=== PATIENT | male | born 1960 | race Caucasian/White ===

== ENCOUNTER 2019-01-27 19:47 | Inpatient (IN) | payer OTHER ==
[~2019-01-27] VITALS: Ht 175.3 cm; Wt 98.5 kg
[2019-01-27] VITALS: BP_SYST 131
[2019-01-27 19:47] VITALS: BP_SYST 155
[2019-01-27 20:40] LABS: BASOPHILS % (AUTO) 0.4 % (0.0-2.0); EOSINOPHILS # (AUTO) 0.1 K/uL (0.0-0.4); EOSINOPHILS % (AUTO) 1.3 % (0.0-4.0); HEMATOCRIT 47.2 % (36-54); HEMOGLOBIN 15.5 g/dL (14.0-18.0); LYMPHOCYTES # (AUTO) 3.1 K/uL (1.0-5.5); LYMPHOCYTES % (AUTO) 33.2 % (20.5-51.5); MEAN CORPUSCULAR HEMOGLOBIN 31 pg (27-31); MEAN CORPUSCULAR HGB CONC 33 % (32-36); MEAN CORPUSCULAR VOLUME 93 fL (79.0-98.0); MONOCYTES # (AUTO) 0.7 K/uL (0.0-1.0); MONOCYTES % (AUTO) 7.9 % (1.7-9.3); NEUTROPHILS # (AUTO) 5.4 K/uL (1.8-7.7); NEUTROPHILS % (AUTO) 57.2 % (40.0-70.0); PLATELET COUNT (AUTO) 215 K/uL (130-430); RED BLOOD CELL COUNT(AUTO) 5.06 MIL/uL (4.2-6.2); RED CELL DISTRIBUTION WIDTH 13.6 % (9.0-15.0); WHITE BLOOD COUNT (AUTO) 9.4 K/uL (4.8-10.8)
[2019-01-27 20:50] LABS: CALCIUM 8.6 mg/dL (8.4-11.0); CREATININE 0.98 mg/dL (0.55-1.30)
[2019-01-27 21:03] LABS: ALBUMIN 3.7 g/dL (3.4-4.8); TOTAL BILIRUBIN 0.3 mg/dL (0.0-1.0)
[2019-01-27] MEDS ORDERED: NITROGLYCERIN 0.4 MG TAB.SUBL SL ONE (21:15)
[2019-01-27] MEDS ORDERED: ASPIRIN 81 MG TAB.CHEW PO ONE (21:15)
[2019-01-27] MEDS ORDERED: HEPARIN SODIUM,PORCINE 5000 UNITS/ML VIAL IVP ONE ×2 (22:30→23:00)
[2019-01-27] MEDS ORDERED: HEPARIN 25,000 UNITS/D5W 250ML 250 ML IV ONE (22:30)
[2019-01-27 22:56] LABS: PROTHROMBIN TIME 9.9 SECS (9.5-12.5)
[2019-01-27] MEDS ORDERED: *HEPARIN PER PHARMACY XX ONE (23:00)
[2019-01-27] MEDS ORDERED: NITROGLYCERIN 0.4 MG TAB.SUBL SL PRN (23:00)
[2019-01-27] MEDS ORDERED: HEPARIN 25,000 UNITS in 250 ML PREMIX IV PRN (23:30)
[2019-01-27] MEDS ORDERED: HEPARIN SODIUM,PORCINE 2000 UNITS/0.4 ML BOLUS IVP SCH (23:30)
[2019-01-27] MEDS ORDERED: METO25TA3 PO (23:36)
[2019-01-27] MEDS ORDERED: SIMV20TA2 PO (23:36)
[2019-01-27] MEDS ORDERED: ENAL5TAB77 PO (23:36)
[2019-01-27] MEDS ORDERED: ASPI-1153 PO (23:36)
[2019-01-28] VITALS (17 sets, daily range): BP systolic 105–153
[2019-01-28] MEDS ORDERED: *HEPARIN PER PHARMACY XX PRN
[2019-01-28] MEDS ORDERED: NITROGLYCERIN 0.4 MG TAB.SUBL SL PRN
[2019-01-28] MEDS ORDERED: HEPARIN SODIUM,PORCINE 2000 UNITS/0.4 ML BOLUS IVP PRN (07:30)
[2019-01-28] MEDS ORDERED: HEPARIN SODIUM,PORCINE 3000 UNITS/0.6 ML BOLUS IVP PRN (07:30)
[2019-01-28] MEDS ORDERED: LISINOPRIL 10 MG TABLET (PRINIVIL) PO SCH (09:00)
[2019-01-28] MEDS ORDERED: SIMVASTATIN 20 MG TABLET PO SCH (09:00)
[2019-01-28] MEDS ORDERED: ASPIRIN 325 MG TABLET PO SCH ×2 (09:00)
[2019-01-28] MEDS ORDERED: ASPIRIN 81 MG TABLET(ECOTRIN) PO SCH (09:00)
[2019-01-28] MEDS ORDERED: METOPROLOL SUCCINATE 25 MG TAB.SR.24H (TOPROL XL) PO SCH (09:00)
[2019-01-28 09:41] LABS: CHOLESTEROL 171 mg/dL (<200); HDL CHOLESTEROL 38 mg/dL (>45); LDL CHOLESTEROL 114 mg/dL (<100); TRIGLYCERIDES 164 mg/dL (30-150)
== END 2019-01-28 18:00 | disposition short-term general hospital (02) | DRG 282 ==
LOC: SED 19:47 → SIC 22:52
PROVIDERS: ADMIT Internal Medicine Hospice and Palliative Medicine; ATTEND Internal Medicine Hospice and Palliative Medicine
DX: I21.4 Non-ST elevation (NSTEMI) myocardial infarction (principal); E78.5 Hyperlipidemia, unspecified; I10 Essential (primary) hypertension; I25.10 Atherosclerotic heart disease of native coronary artery without angina pectoris; I25.2 Old myocardial infarction; Z95.1 Presence of aortocoronary bypass graft; Z79.899 Other long term (current) drug therapy; Z79.82 Long term (current) use of aspirin; Z82.49 Family history of ischemic heart disease and other diseases of the circulatory system
CPT/HCPCS: 36415; 71045; 80053; 80061; 83690-TC; 84484; 85025; 85610-TC; 85730-TC; 87081; 93005; 93306; 96374; 99291; J1644